=== PATIENT | female | born 1940 | race African-American/Black ===

== ENCOUNTER 2016-12-23 07:06 | Emergency (ER) | payer OTHER ==
[2016-12-23 07:08] VITALS: BP 173/88; PULSE 93; RESP 15; TEMP 98.3; O2SAT 99
[2016-12-23 07:37] VITALS: BP 175/92; PULSE 82; RESP 14; O2SAT 96
[2016-12-23] MEDS ORDERED: LISI40TA PO (07:41)
[2016-12-23] MEDS ORDERED: ASPI-437 (07:43)
[2016-12-23] MEDS ORDERED: POTA-255 (07:43)
[2016-12-23] MEDS ORDERED: FURO1TAB60 PO (07:43)
[2016-12-23] MEDS ORDERED: OXYC1TAB63 PO (07:44)
--- NOTE | 2016-12-23 07:57 | PD ---
HPI Chief Complaint: Musculoskeletal Complaint Time Seen by Provider: 07:42 Travel History International Travel<30 days: No Contact w/Intl Traveler<30days: No Traveled to known affect area: No History of Present Illness HPI C/O NECK PAIN AND DIFFICULTY MOVING HER NECK, NOTICED IT AFTER CLEANING HOUSE ALL DAY. NO FEVER/[place]/N/V/CP/ABD PAIN/ OR RASH. PATIENT RATES PAIN 7/10, SHARP , NONRAD, WORSE WITH ROM OF NECK, BETTER IF SHE KEEPS STILL OR MOVES SLOWLY PFSH Past Medical History Hx Anticoagulant Therapy: Yes (asa 81) Cardiovascular Problems: Yes (htn) Hypertension: Yes ?: Not Past Surgical History Gynecologic Surgery: Yes (FIBROID TUMOR REMOVED) Hysterectomy: Yes Social History Alcohol Use: No Tobacco Use: No Substance Use: No Allergies-Medications (Allergen,Severity, Reaction): Coded Allergies: Ampicillin (Verified Allergy, Severe, facial swelling, 12/23/16) Penicillin (Verified Allergy, Severe, facial swelling, 12/23/16) Reported Meds & Prescriptions Reported Meds & Active Scripts Active Naproxen EC (Naproxen) 375 Mg Tabdr 375 Mg PO BID Flexeril (Cyclobenzaprine HCl) 10 Mg Tab 10 Mg PO TID Reported Oxycodone-Acetaminophen 5-325 mg Tab 1 Tab PO Q6H PRN Lasix (Furosemide) 40 Mg Tab 40 Mg PO DAILY Potassium (Potassium Gluconate) 600 Mg Tablet Adult Low Dose Aspirin EC (Aspirin) 81 Mg Tablet. Lisinopril 40 Mg Tab 40 Mg PO DAILY Review of Systems Except as stated in HPI: all other systems reviewed are Neg Musculoskeletal: Positive: Limited ROM, Pain Physical Exam Narrative GENERAL: SKIN: Warm and dry. NO RASH HEAD: Atraumatic. Normocephalic. EYES: Pupils equal and round. No scleral icterus. No injection or drainage. ENT: No nasal bleeding or discharge. Mucous membranes pink and moist. NECK: Trachea midline. No JVD. NOTED BILATERAL SCM SPASMS NOTED, ABLE TO TURN THROUGH MOST OF ROM BUT PAINFUL..ALSO MUSCLE AREA TENDER TO PALPATION, NO APPARENT MIDLINE TTP ON EXAMINATIONI THUS FAR CARDIOVASCULAR: Regular rate and rhythm. NOTED 2+PITTING EDEMA WITHOUT CELLULITIC COMPONENT NOTED BILATERALLY RESPIRATORY: No accessory muscle use. Clear to auscultation. Breath sounds equal bilaterally. GASTROINTESTINAL: Abdomen soft, non-tender, nondistended. MUSCULOSKELETAL: Extremities without clubbing, cyanosis, or edema. No obvious deformities. NEUROLOGICAL: Awake and alert. No obvious cranial nerve deficits. Motor grossly within normal limits. Five out of 5 muscle strength in the arms and legs. Normal speech. PSYCHIATRIC: Appropriate mood and affect; insight and judgment normal. Data Data Last Documented VS Vital Signs Date Time Temp Pulse Resp B/P Pulse Ox O2 Delivery O2 Flow Rate FiO2 12/23/16 10:35 85 12 129/79 97 Room Air 12/23/16 07:08 98.3 Orders Electrocardiogram (12/23/16 07:48) Iv Access Insert/Monitor (12/23/16 07:48) Ketorolac Inj (Toradol Inj) (12/23/16 08:00) Lorazepam Inj (Ativan Inj) (12/23/16 08:00) Ct Cerv Spine W/O Contrast (12/23/16 ) [facility] Medical Decision Making Medical Screen Exam Complete: Yes Emergency Medical Condition: Yes Medical Record Reviewed: Yes Interpretation(s) NSR 77, NO STEMI PATTERN, NORMAL INTERVALS Differential Diagnosis ATYPICAL STEMI V DDD V RADICULOPATHY V NECK SPASM Narrative Course CT REVEALED SOME LEFT SIDED FACET HYPERTROPHY WHICH MAY BE INPINGEMENT AT C7, NO CENTRAL CORD INVOLVEMENT Diagnosis Primary Impression: ACUTE NECK SPASM Scripts Naproxen DR (Naproxen EC)375 Mg [id number] Mg PO BID #14 TAB Ref 0 Prov:Ramses Aguilar MD 12/23/16 Cyclobenzaprine (Flexeril)10 Mg Tab10 Mg PO TID #21 TAB Prov:Ramses Aguilar MD 12/23/16 Disposition: 01 DISCHARGE HOME Condition: Stable Ramses Aguilar MD Dec 23, 2016 07:57
[2016-12-23] MEDS ORDERED: LORazepam 2 MG/ML VIAL IV PUSH ONE (08:00)
[2016-12-23] MEDS ORDERED: KETOROLAC TROMETHAMINE 30 MG/ML (IVP) VIAL IV PUSH ONE (08:00)
--- NOTE | 2016-12-23 09:44 | RADRPT ---
EXAM DATE/TIME: 12/23/2016 08:42 [facility] COMPARISON: No previous studies available for comparison. INDICATIONS : Neck pain with radiculopathy down left arm after cleaning house all day. RADIATION DOSE: 30.25 CTDIvol (mGy) MEDICAL HISTORY : Hypertension. SURGICAL HISTORY : Hysterectomy. ENCOUNTER: Initial ACUITY: 1 day PAIN SCALE: 7/10 LOCATION: Left neck TECHNIQUE: Volumetric scanning of the cervical spine was performed. Multiplanar reconstructions in the sagittal, coronal and oblique axial planes were performed. Using automated exposure control and adjustment o f the mA and/or kV according to patient size, radiation dose was kept as low as reasonably achievable to obtain optimal diagnostic quality images. DICOM format image data is available electronically f or review and comparison. FINDINGS: Sagittal and coronal reconstructions show degenerative disc disease most prominent in the mid cervica l levels of C4-5 and C5-6. Small marginal spurs at C5-6 and predominately directed inferiorly and the re is a minimal read one retrolisthesis of 5 on 6. Wedge deformity of C5 is chronic. Vertebral body h eights are maintained. Spinal canal appears to be adequate throughout. Detailed axial images as follo ws: C2-C3: The bony spinal canal is normal in size. No evidence of disc bulge or herniation. The neural forami na are bilaterally patent. C3-C4: The bony spinal canal is normal in size. No evidence of disc bulge or herniation. The neural forami na are bilaterally patent. C4-C5: Mild uncovertebral ridging. There is some left facet hypertrophy. The combination encroaches on the l eft neural foramina but the spinal canal and neural foramina are adequate. C5-C6: The bony spinal canal is normal in size. No evidence of disc bulge or herniation. The neural forami na are bilaterally patent. C6-C7: Some uncovertebral ridging narrows the left neural foramina. This may be severe enough to compromise the left C7 nerve root. Spinal canal and right neural foramina are adequate. C7-T1: The bony spinal canal is normal in size. No evidence of disc bulge or herniation. The neural forami na are bilaterally patent. CONCLUSION: 1. Chronic changes with some uncovertebral ridging most prominent at C4-5 and C5-6 as detailed above. 2. Chronic wedge deformity of C5 with no acute fracture. 3. Mild narrowing of the left neural foramen at C4-5 predominantly due to to facet hypertrophy and mi ld uncovertebral ridging without obvious nerve root compromise. 4. Moderately severe narrowing of the left neural foramen at C6-7 which does appear severe enough to compromise the left C7 nerve root. Gilmer Holden MD on December 23, 2016 at 9:15 Board Certified Radiologist. This report was verified electronically.
[2016-12-23] MEDS ORDERED: CYCL1TAB29 PO (10:23)
[2016-12-23] MEDS ORDERED: NAPR-239 PO (10:23)
[2016-12-23 10:35] VITALS: BP 129/79; PULSE 85; RESP 12; O2SAT 97
--- NOTE | 2016-12-24 09:54 | EKG ---
Date Performed: 12/23/2016 Time Performed: 08:18:12 PTAGE: 76 years EKG: Sinus rhythm NORMAL ECG NO PREVIOUS TRACING DOCTOR: Ramírez Bartholomew Interpretating Date/Time 12/24/2016 09:53:20
== END 2016-12-23 12:29 | disposition home or self-care (01) ==
LOC: NEPE 07:06
DX: M54.2 Cervicalgia (principal); M62.838 Other muscle spasm; I10 Essential (primary) hypertension; Z79.82 Long term (current) use of aspirin
CPT/HCPCS: 72125; 93005; 96374; 96375; 99285; J1885; J2060

== ENCOUNTER 2017-03-23 20:13 | Inpatient (IN) | payer OTHER, MEDICARE ==
[~2017-03-23] VITALS: Ht 165.1 cm; Wt 72.4 kg
[~2017-03-23 20:13] MED LIST: ASPI-437; CYCL1TAB29 PO; FURO1TAB60 PO; LISI40TA PO; NAPR-239 PO; OXYC1TAB63 PO; POTA-255
--- NOTE | 2017-03-23 20:50 | PD ---
HPI Chief Complaint: fall Time Seen by Provider: 20:50 Travel History International Travel<30 days: No Contact w/Intl Traveler<30days: No Traveled to known affect area: No History of Present Illness HPI 76-year-old female tripped and fell around 1:30 to 2 PM today. After that she was having severe right hip pain and was unable to get off the ground. She was finally found by someone who called 911. As per EMS patient had severe right hip pain and was unable to move her leg because of that. She did not receive any pain meds on route. Patient is awake and alert and able to provide history. She says she fell and hit her head as well. However she is denying any loss of consciousness. Vital signs are stable. Patient takes 1 baby aspirin every day. As per her the fall was purely mechanical. PFSH Past Medical History Narrative Medical List of her past medical, surgical, social and family history is reviewed from the nursing note. Hx Anticoagulant Therapy: Yes (asa 81) Cardiovascular Problems: Yes (htn) Hypertension: Yes Past Surgical History Gynecologic Surgery: Yes (FIBROID TUMOR REMOVED) Hysterectomy: Yes Social History Alcohol Use: No Tobacco Use: No Substance Use: No Allergies-Medications (Allergen,Severity, Reaction): Coded Allergies: ampicillin (Unverified Allergy, Severe, facial swelling, 03/24/17) penicillin G (Unverified Allergy, Severe, facial swelling, 03/24/17) Comments List of her allergies reviewed from the nursing note. Reported Meds & Prescriptions Reported Meds & Active Scripts Active Naproxen EC (Naproxen) 375 Mg Tabdr 375 Mg PO BID Flexeril (Cyclobenzaprine HCl) 10 Mg Tab 10 Mg PO TID Reported Oxycodone-Acetaminophen 5-325 mg Tab 1 Tab PO Q6H PRN Lasix (Furosemide) 40 Mg Tab 40 Mg PO DAILY Potassium (Potassium Gluconate) 600 Mg Tablet Adult Low Dose Aspirin EC (Aspirin) 81 Mg Tablet. Lisinopril 40 Mg Tab 40 Mg PO DAILY Narrative Medication List of her home medications reviewed from the nursing note. Review of Systems Except as stated in HPI: all other systems reviewed are Neg Musculoskeletal: Positive: Limited ROM, Pain (right hip pain) Physical Exam Narrative GENERAL: Awake, alert, moderate to significant distress SKIN: Focused skin assessment warm/dry. Dry, flaky skin HEAD: Atraumatic. Normocephalic. EYES: Pupils equal and round. No scleral icterus. No injection or drainage. ENT: No nasal bleeding or discharge. Dry mucous membrane NECK: Trachea midline. No JVD. CARDIOVASCULAR: Regular rate and rhythm. No murmur appreciated. RESPIRATORY: No accessory muscle use. Clear to auscultation. Breath sounds equal bilaterally. GASTROINTESTINAL: Abdomen soft, non-tender, nondistended. Hepatic and splenic margins not palpable. MUSCULOSKELETAL: No obvious deformities. No clubbing. No cyanosis. No edema. Patient is laying in left decubitus position and the right hip is semi-flexed along with the right knee. Decreased range of motion due to pain. Distal neurovascular intact NEUROLOGICAL: Awake and alert. No obvious cranial nerve deficits. Motor grossly within normal limits. Normal speech. PSYCHIATRIC: Appropriate mood and affect; insight and judgment normal. Data Data Last Documented VS Orders Orders Electrocardiogram (03/23/17 20:54) Basic Metabolic Panel (Bmp) (03/23/17 20:54) Complete Blood Count With Diff (03/23/17 20:54) Magnesium (Mg) (03/23/17 20:54) Prothrombin Time / Inr (Pt) (03/23/17 20:54) Act Partial Throm Time (Ptt) (03/23/17 20:54) Chest, Single Ap (03/23/17 20:54) Ecg Monitoring (03/23/17 20:54) Bilateral Bp Monitoring (03/23/17 20:54) Iv Access Insert/Monitor (03/23/17 20:54) Oximetry (03/23/17 20:54) Oxygen Administration (03/23/17 20:54) Sodium Chloride 0.9% Flush (Ns Flush) (03/23/17 21:00) Sodium Chlorid 0.9% 500 Ml Inj (Ns 500 M (03/23/17 21:00) Morphine Inj (Morphine Inj) (03/23/17 21:00) Ct Brain W/O Iv Contrast(Rout) (03/23/17 ) Hip, Uni(Ap&Lat) W Ap Pelvis (03/23/17 ) Admit Order (Ed Use Only) (03/23/17 22:26) Place In Observation (03/23/17 ) Code Status (03/23/17 22:55) Vital Signs (Adult) Q4H (03/23/17 22:55) Activity Bed Rest (03/23/17 22:55) Bedside Glucose DIVYA.CSUGAR (03/23/17 22:55) Intake + Output DIVYA.QSHIFT (03/23/17 22:55) Diet Heart Healthy (03/23/17 Dinner) Sodium Chlor 0.9% 1000 Ml Inj (Ns 1000 M (03/23/17 22:55) Sodium Chloride 0.9% Flush (Ns Flush) (03/23/17 23:00) Sodium Chloride 0.9% Flush (Ns Flush) (03/23/17 23:00) Acetaminophen (Tylenol) (03/23/17 23:00) Basic Metabolic Panel (Bmp) (03/24/17 06:00) Resp Oxygen Dougie C Titrat 1-4 L (03/23/17 ) Pt Request For Service (03/23/17 22:55) Case Management Consult (03/23/17 22:55) Scd Bilateral/Knee High DIVYA.BID (03/23/17 22:55) Naloxone Inj (Narcan Inj) (03/23/17 23:00) Docusate Sodium-Senna (Verena-Colace) (03/24/17 21:00) Magnesium Hydroxide Liq (Milk Of Magnesi (03/23/17 23:00) Bisacodyl Supp (Dulcolax Supp) (03/23/17 23:00) Lactulose Liq (Lactulose Liq) (03/23/17 23:00) Consult Orthopedic (03/23/17 ) Acetamin-Hydrocod 325-7.5 Mg ([place] 7.5 (03/23/17 23:00) Morphine Inj (Morphine Inj) (03/24/17 02:00) Echo 2d Comp With Doppler (03/24/17 ) Labs Laboratory Tests Test 03/23/17 22:27 White Blood Count 9.1 TH/MM3 Red Blood Count 4.84 MIL/MM3 Hemoglobin 12.8 GM/DL Hematocrit 39.2 % Mean Corpuscular Volume 80.9 FL Mean Corpuscular Hemoglobin 26.5 PG Mean Corpuscular Hemoglobin Concent 32.8 % Red Cell Distribution Width 15.1 % Platelet Count 225 TH/MM3 Mean Platelet Volume 9.1 FL Neutrophils (%) (Auto) 85.5 % Lymphocytes (%) (Auto) 4.8 % Monocytes (%) (Auto) 9.6 % Eosinophils (%) (Auto) 0.0 % Basophils (%) (Auto) 0.1 % Neutrophils # (Auto) 7.7 TH/MM3 Lymphocytes # (Auto) 0.4 TH/MM3 Monocytes # (Auto) 0.9 TH/MM3 Eosinophils # (Auto) 0.0 TH/MM3 Basophils # (Auto) 0.0 TH/MM3 CBC Comment DIFF FINAL Differential Comment Prothrombin Time 11.3 SEC Prothromb Time International Ratio 1.0 RATIO Activated Partial Thromboplast Time 24.1 SEC Blood Urea Nitrogen 17 MG/DL Creatinine 0.85 MG/DL Random Glucose 125 MG/DL Calcium Level 9.6 MG/DL Magnesium Level 2.2 MG/DL Sodium Level 136 MEQ/L Potassium Level 3.7 MEQ/L Chloride Level 104 MEQ/L Carbon Dioxide Level 23.3 MEQ/L Anion Gap 9 MEQ/L Estimat Glomerular Filtration Rate 78 ML/MIN Total Creatine Kinase 335 U/L Creatine Kinase MB 3.1 NG/ML Creatine Kinase MB % 0.9 % MDM Medical Decision Making Medical Screen Exam Complete: Yes Emergency Medical Condition: Yes Medical Record Reviewed: Yes Interpretation(s) Twelve-lead EKG was reviewed by me. Normal sinus rhythm, normal axis, nonspecific ST-T wave changes. Heart rate of 86 bpm. Differential Diagnosis Hip fracture, intracranial bleed, rhabdomyolysis, dehydration, electrolyte abnormality Narrative Course 10:30 PM patient was given IV morphine for pain and IV fluid bolus. X-ray of the hip showed intertrochanter fracture. CT scan is negative for any head bleed. Awaiting for the blood test results. However given the hip fracture patient was admitted under medical service to the residents. Procedures EKG Prior to Arrival: No Diagnosis Primary Impression: Intertrochanteric fracture of right hip Qualified Codes: S72.141A - Displaced intertrochanteric fracture of right femur, initial encounter for closed fracture Additional Impression: Fall Qualified Codes: W19.XXXA - Unspecified fall, initial encounter Admitting Information Admitting Physician Requests: Admit Scripts Calcium Carbonate-Vitamin D (Calcium 600+D 200) 600-200 Mg-Unit Tab 1 TAB PO BID for Nutritional Supplement for 30 Days, #60 TAB 0 Refills Prov: Colton Esquivel 03/24/17 Cholecalciferol (Vitamin D3) 2,000 Unit Cap 2000 UNITS PO DAILY for Nutritional Supplement, #56 CAP 0 Refills Prov: Colton Esquivel 03/24/17 Ergocalciferol (Ergocalciferol) 50,000 Unit Cap 53284 UNITS PO Q7D for Nutritional Supplement, #56 CAP Prov: Colton Esquivel 03/24/17 Rivaroxaban (Xarelto) 10 Mg Tab 10 MG PO DAILY for Blood Clot Prevention, #14 TAB 0 Refills Prov: Colton Esquivel 03/24/17 Oxycodone-Acetaminophen (Endocet) 7.5-325 mg Tab 1 TAB PO Q4H Y for Pain Management, #60 TAB 0 Refills Prov: Colton Esquivel 03/24/17 Walker/Adult/Folding (Walker/Adult/Folding) 1 Mis Mis EA .ROUTE DIRECTED, #1 0 Refills Prov: Colton Esquivel 03/24/17 Roxanne Ponce MD Mar 23, 2017 20:50
[2017-03-23 20:55] VITALS: BP 160/74; PULSE 92; RESP 16; TEMP 98.5; O2SAT 100
[2017-03-23] MEDS ORDERED: MORPHINE SULFATE 4 MG/ML INJ IV PUSH ONE (21:00)
[2017-03-23] MEDS ORDERED: SODIUM CHLORIDE 0.9% FLUSH 10 ML FLUSH IVF PRN (21:00)
[2017-03-23] MEDS ORDERED: SODIUM CHLORID 0.9% 500 ML INJ 500 ML IV ONE (21:00)
[2017-03-23 21:21] VITALS: BP 160/74; PULSE 92; RESP 16; TEMP 98.5; O2SAT 100
--- NOTE | 2017-03-23 21:39 | RADRPT ---
EXAM DATE/TIME: 03/23/2017 21:04 [facility] COMPARISON: No previous studies available for comparison. INDICATIONS : Right hip pain, fell MEDICAL HISTORY : Hypertension. SURGICAL HISTORY : Hysterectomy. ENCOUNTER: Initial ACUITY: 1 day PAIN SCORE: 10/10 LOCATION: Right Hip FINDINGS: Examination reveals a mildly displaced and angulated intertrochanteric fracture of the right hip. The re is some mild degree of impaction. Slight medial displacement of the lesser trochanteric fracture f ragment. The femoral head remains situated over the acetabulum. The pelvis appears grossly intact. Co ntralateral left hip is intact. CONCLUSION: Intertrochanteric right hip fracture. Wyatt Barber MD on March 23, 2017 at 21:37 Board Certified Radiologist. This report was verified electronically.
--- NOTE | 2017-03-23 21:40 | RADRPT ---
EXAM DATE/TIME: 03/23/2017 21:04 [facility] COMPARISON: No previous studies available for comparison. INDICATIONS : Evaluate chest for trauma, fell MEDICAL HISTORY : Hypertension. SURGICAL HISTORY : Hysterectomy. ENCOUNTER: Initial ACUITY: 1 day PAIN SCORE: 0/10 LOCATION: chest FINDINGS: A single view of the chest demonstrates the lungs to be symmetrically aerated without evidence of mas s, infiltrate or effusion. The cardiomediastinal contours are unremarkable. Osseous structures are intact. CONCLUSION: No acute disease. Wyatt Barber MD on March 23, 2017 at 21:38 Board Certified Radiologist. This report was verified electronically.
--- NOTE | 2017-03-23 21:59 | RADRPT ---
EXAM DATE/TIME: 03/23/2017 21:37 [facility] COMPARISON: No previous studies available for comparison. INDICATIONS : Trauma. Fall. RADIATION DOSE: 29.63 CTDIvol (mGy) MEDICAL HISTORY : None SURGICAL HISTORY : None. ENCOUNTER: Initial ACUITY: 1 day PAIN SCALE: 5/10 LOCATION: cranial TECHNIQUE: Multiple contiguous axial images were obtained of the head. Using automated exposure control and adj ustment of the mA and/or kV according to patient size, radiation dose was kept as low as reasonably a chievable to obtain optimal diagnostic quality images. DICOM format image data is available electro nically for review and comparison. FINDINGS: CEREBRUM: The ventricles are normal for age. No evidence of midline shift, mass lesion, hemorrhage or acute in farction. No extra-axial fluid collections are seen. POSTERIOR FOSSA: The cerebellum and brainstem are intact. The 4th ventricle is midline. The cerebellopontine angle i s unremarkable. EXTRACRANIAL: The visualized portion of the orbits is intact. SKULL: The calvaria is intact. No evidence of skull fracture. CONCLUSION: Normal examination. Wyatt Barber MD on March 23, 2017 at 21:57 Board Certified Radiologist. This report was verified electronically.
--- NOTE | 2017-03-23 22:35 | HHI.HP ---
HPI Service Family Medicine Primary Care Physician Nikkie Carrera MD Admission Diagnosis fall, hip fracture Diagnoses: International Travel<30 Days: No Contact w/Intl Traveler<30days: No Known Affected Area: No History of Present Illness Patient is a 76 year old female with h/o HTN and chronic pain brought to the ED via EMS after calling 911 following a fall. She states she was working outside in front of her house around 14:00 today when she tripped over something and fell. She states the first thing she hit when she fell was her right hip and she also reports hitting the right side of her head after this. She states she fell on cement. She denies trauma to any other part of her body. She states she was outside for about 4 to 5 hours as she could not get up and no one was around to help her. She states she crawled back into her home, crawled up her stairs, and then called 911 for help. She denies any LOC after the fall or hitting her head. She does endorse a headache about moderate intensity. Denies any confusion now or with the fall. Denies changes in vision, double vision, N/V , CP, SOB, cough, f/c. Prior to this fall she had good functional status and is independent with all ADLs. (Killian Muir MD R2) Review of Systems Constitutional: DENIES: Fever, Chills Eyes: DENIES: Blurred vision, Diplopia Respiratory: DENIES: Cough, Sputum production, Shortness of breath Cardiovascular: DENIES: Chest pain, Palpitations Gastrointestinal: DENIES: Abdominal pain, Black stools, Bloody stools, Constipation, Diarrhea, Nausea, Vomiting Genitourinary: DENIES: Hematuria, Dysuria (Killian Muir MD R2) Past Family Social History Past Medical History HTN Lower extremity cellulitis Chronic pain Past Surgical History Hysterectomy ~40 years ago Myomectomy ? Varicose vein surgery (Killian Muir MD R2) Allergies: Coded Allergies: ampicillin (Unverified Allergy, Severe, facial swelling, 03/24/17) penicillin G (Unverified Allergy, Severe, facial swelling, 03/24/17) Family History Mother: ovarian cancer, at 67yo Father: lung cancer, at 57yo Social History Tobacco: denies Etoh: rare social occasions only Illicit drug use: denies Lives with her daughter at home (Killian Muir MD R2) Physical Exam Vital Signs Vital Signs Date Time Temp Pulse Resp B/P (MAP) Pulse Ox O2 Delivery O2 Flow Rate FiO2 03/23/17 22:17 Room Air 03/23/17 21:21 100 03/23/17 21:21 98.5 92 16 160/74 (102) 100 Nasal Cannula 03/23/17 21:21 100 03/23/17 20:55 98.5 92 16 160/74 (102) 100 Physical Exam GENERAL: NAD, lying comfortably in bed NEURO: Alert. Normal speech. 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 Strength 5/5 upper extremities and left leg. 3/5 strength right lower extremity. SKIN: Warm and dry. Darkened and old mottled skin on bilateral lower extremities. No erythema. No open or actively draining or bleeding lesions. HEAD: Normocephalic. Atraumatic. EYES: PERRL. EOMI. No scleral icterus. No injection or drainage. ENT: No nasal drainage. Moist mucous membranes. No oral ulcers or lesions. NECK: Supple, trachea midline. No JVD or lymphadenopathy. CARDIOVASCULAR: Regular rate and rhythm, early systolic murmur best auscultated LUSB. Peripheral pulses 2+. Capillary refill < 2 seconds. RESPIRATORY: Breath sounds clear to auscultation and equal bilaterally, without wheezes, rales, or rhonchi. No accessory muscle use. GASTROINTESTINAL: Abdomen soft, nontender, nondistended, normal BS. No organomegaly or masses. No rebound tenderness. No guarding. MUSCULOSKELETAL: No lower extremity edema. Normal range of motion. No calf tenderness. (Killian Muir MD R2) Caprini VTE Risk Assessment Caprini VTE Risk Assessment: Mod/High Risk (score >= 2) Caprini Risk Assessment Model Point Value = 1 Point Value = 2 Point Value = 3 Point Value = 5 Age 41-60 Minor surgery BMI > 25 kg/m2 Swollen legs Varicose veins or History of unexplained or recurrent spontaneous Oral contraceptives or hormone replacement Sepsis (< 1 month) Serious lung disease, including pneumonia (< 1 month) Abnormal pulmonary function Acute myocardial infarction Congestive heart failure (< 1 month) History of inflammatory bowel disease Medical patient at bed rest Age 61-74 Arthroscopic surgery Major open surgery (> 45 min) Laparoscopic surgery (> 45 min) Malignancy Confined to bed (> 72 hours) Immobilizing plaster cast Central venous access Age >= 75 History of VTE Family history of VTE Factor V Leiden Prothrombin [id number] Lupus anticoagulant Anticardiolipin antibodies Elevated serum homocysteine Heparin-induced thrombocytopenia Other congenital or acquired thrombophilia Stroke (< 1 month) Elective arthroplasty Hip, pelvis, or leg fracture Acute spinal cord injury (< 1 month) Prophylaxis Regimen Total Risk Factor Score Risk Level Prophylaxis Regimen 0-1 Low Early ambulation 2 Moderate Order ONE of the following: *Sequential Compression Device (SCD) *Heparin 5000 units SQ BID 3-4 Higher Order ONE of the following medications: *Heparin 5000 units SQ TID *Enoxaparin/Lovenox 40 mg SQ daily (WT < 150 kg, CrCl > 30 mL/min) *Enoxaparin/Lovenox 30 mg SQ daily (WT < 150 kg, CrCl > 10-29 mL/min) *Enoxaparin/Lovenox 30 mg SQ BID (WT < 150 kg, CrCl > 30 mL/min) AND/OR *Sequential Compression Device (SCD) 5 or more Highest Order ONE of the following medications: *Heparin 5000 units SQ TID (Preferred with Epidurals) *Enoxaparin/Lovenox 40 mg SQ daily (WT < 150 kg, CrCl > 30 mL/min) *Enoxaparin/Lovenox 30 mg SQ daily (WT < 150 kg, CrCl > 10-29 mL/min) *Enoxaparin/Lovenox 30 mg SQ BID (WT < 150 kg, CrCl > 30 mL/min) AND *Sequential Compression Device (SCD) (Killian Muir MD R2) Assessment and Plan Assessment and Plan 76 year old female being admitted for a right intertrochanteric hip fracture. Code Status Full code Discussed Condition With Dr. Willis (Killian Muir MD R2) Attending Attestation THIS CASE WAS DISCUSSED WITH THE RESIDENT PHYSICIANS. I HAVE REVIEWED THE RECORD AND AGREE WITH THE ABOVE NOTE AND PLAN OF CARE WAS DISCUSSED. I HAVE AUTHORIZED THE ORDER FOR ADMISSION TO AN IN-PATIENT STATUS. (Desire Telles MD) Problem List: (1) Intertrochanteric fracture of right hip ICD Codes: S72.141A - Displaced intertrochanteric fracture of right femur, initial encounter for closed fracture Status: Acute Plan: - Hip/pelvis x-ray demonstrating intertrochanteric right hip fracture - Orthopedic surgery consulted - NPO after midnight - [place] 7.5/325 po q4h prn pain 6-10 - Morphine 4 mg IV q4h prn breakthrough - NS at 110 cc/hr (2) Elevated CK ICD Codes: R74.8 - Abnormal levels of other serum enzymes Status: Acute Plan: - Likely contributed by trauma, exertion, heat as patient was outside for about 5 hours - NS at 110 cc/hr - Cr 0.85 WNL (3) Heart murmur ICD Codes: R01.1 - Cardiac murmur, unspecified Status: Acute Plan: - Patient reported not knowing of a heart murmur in the past - Will obtain a 2D echo (4) Hypertension ICD Codes: I10 - Essential (primary) hypertension Status: Chronic Plan: Continue home lisinopril Vitals q4h (5) Nutrition, metabolism, and development symptoms ICD Codes: R63.8 - Other symptoms and signs concerning food and fluid intake Status: Acute Plan: Fluids: NS at 110 cc/hr Electrolytes: WNL, continue to monitor Nutrition: NPO after MN DVT ppx: b/l SCDs (Killian Muir MD R2) Physician Certification 2 Midnight Certification Type: Admission for Inpatient Services Order for Inpatient Services The services are ordered in accordance with Medicare regulations or non- Medicare payer requirements, as applicable. In the case of services not specified as inpatient-only, they are appropriately provided as inpatient services in accordance with the 2-midnight benchmark. Estimated LOS (days): 2 days is the estimated time the patient will need to remain in the hospital, assuming treatment plan goals are met and no additional complications. Post-Hospital Plan: Inpatient Rehab (Killian Muir MD R2) 2 Midnight Certification Type: Admission for Inpatient Services Post-Hospital Plan: Home (Desire Telles MD) Problem Qualifiers (1) Intertrochanteric fracture of right hip: Qualified Codes: S72.141A - Displaced intertrochanteric fracture of right femur , initial encounter for closed fracture Killian Muir MD R2 Mar 23, 2017 22:35 Desire Telles MD Mar 24, 2017 13:10
[2017-03-23 22:43] LABS: AUTOMATED NEUTROPHIL # 7.7 TH/MM3 (1.8-7.7); BASOPHIL % 0.1 % (0.0-2.0); HEMATOCRIT 39.2 % (35.0-46.0); HEMO FLAGS DIFF FINAL; LYMPH % 4.8 % (9.0-44.0); LYMPHOCYTE # 0.4 TH/MM3 (1.0-4.8); MEAN CELL VOLUME 80.9 FL (80.0-100.0); MEAN CORPUSCULAR HEMOGLOBIN 26.5 PG (27.0-34.0); MEAN CORPUSCULAR HGB CONC 32.8 % (32.0-36.0); MONO % 9.6 % (0.0-8.0); NEUT % 85.5 % (16.0-70.0); PLATELET COUNT 225 TH/MM3 (150-450); RED BLOOD COUNT 4.84 MIL/MM3 (4.00-5.30); RED CELL DISTRIBUTION WIDTH 15.1 % (11.6-17.2); WHITE BLOOD COUNT 9.1 TH/MM3 (4.0-11.0)
[2017-03-23 23:00] LABS: BICARBONATE 23.3 MEQ/L (21.0-32.0); MAGNESIUM 2.2 MG/DL (1.5-2.5); POTASSIUM 3.7 MEQ/L (3.5-5.1)
[2017-03-23] MEDS ORDERED: BISACODYL 10 MG SUPP RECTAL PRN (23:00)
[2017-03-23] MEDS ORDERED: NALOXONE HCL 0.4 MG/ML AMP IV PUSH PRN (23:00)
[2017-03-23] MEDS ORDERED: SODIUM CHLORIDE 0.9% FLUSH 10 ML FLUSH IV FLUSH PRN (23:00)
[2017-03-23] MEDS ORDERED: ACETAMINOPHEN 325 MG TAB PO PRN (23:00)
[2017-03-23 23:02] LABS: APTT (PATIENT) 24.1 SEC (24.3-30.1); PROTHROMBIN TIME - PATIENT 11.3 SEC (9.8-11.6)
[2017-03-23] MEDS: SODIUM CHLORIDE 0.9% FLUSH 10 ML FLUSH IV FLUSH SCH (23:11)
[2017-03-23] MEDS: SODIUM CHLOR 0.9% 1000 ML INJ 1,000 ML IV SCH (23:12)
[2017-03-23 23:38] VITALS: O2SAT 97
[2017-03-23 23:48] VITALS: BP 153/84
[2017-03-24] VITALS (7 sets, daily range): BP systolic 123–149; BP diastolic 64–78; PULSE 78–104; RESP 16–18; TEMP 95.9–98; O2SAT 95–98
[2017-03-24 00:04] LABS: CKMB 3.1 NG/ML (0.5-3.6)
[2017-03-24] MEDS ORDERED: METOPROLOL TARTRATE 25 MG TAB PO PRN (01:00)
[2017-03-24] MEDS ORDERED: POVIDONE IODINE 5% (ANTISEPSIS KIT) 4 APPLICATIONS EACH NARE PRN (01:00)
[2017-03-24] MEDS ORDERED: CHLORHEXIDINE GLUCONATE 2 % 1 PACK (2 CLOTHS) TOPICAL PRN (01:00)
[2017-03-24] MEDS ORDERED: SODIUM CHLORID 0.9% 500 ML IV PRN (01:00)
[2017-03-24] MEDS ORDERED: LACTATED RINGER'S 1000 ML IV PRN (01:00)
[2017-03-24] MEDS ORDERED: INSULIN HUMAN REGULAR 1,000 UNITS/10 ML VIAL SQ PRN (01:00)
[2017-03-24] MEDS ORDERED: MORPHINE SULFATE 4 MG/ML INJ IV PUSH PRN ×2 (02:00→08:30)
--- NOTE | 2017-03-24 07:01 | PD.ORT.PN ---
Subjective Subjective Remarks s/p fall at home. right hip pain. no other complaints. Objective Vitals Vital Signs Date Time Temp Pulse Resp B/P (MAP) Pulse Ox O2 Delivery O2 Flow Rate FiO2 03/24/17 04:00 97.8 93 16 149/72 (97) 03/24/17 00:00 97.2 98 16 133/76 (95) 96 03/23/17 23:48 153/84 (107) 99 03/23/17 23:38 97 03/23/17 22:17 Room Air 03/23/17 21:21 100 03/23/17 21:21 98.5 92 16 160/74 (102) 100 Nasal Cannula 03/23/17 21:21 100 03/23/17 20:55 98.5 92 16 160/74 (102) 100 I/O 03/23/17 03/23/17 03/23/17 03/24/17 03/24/17 03/24/17 07:00 15:00 23:00 07:00 15:00 23:00 Intake Total 480 ml Balance 480 ml Intake Oral 480 ml # Voids 3 # Bowel Movements 0 Result Diagram: 03/23/17222603/23/172226 Other Results Laboratory Tests Test 03/23/17 22:27 Prothromb Time International Ratio 1.0 RATIO Prothrombin Time 11.3 SEC (9.8-11.6) Imaging Last 24 hours Impressions Chest X-Ray 03/23/172053 Signed Impressions: Service Date/Time: Thursday, March 23, 2017 21:04 - CONCLUSION: No acute disease. Wyatt Barber MD Objective Remarks RLE: pain with motion of hip. no pain in knee or ankle. NVI Assessment & Plan Assessment and Plan 1) Right Intertroch Hip Fx -npo -consents -surgery today Colton Esquivel Mar 24, 2017 07:01
[2017-03-24] MEDS ORDERED: CALCTAB19 PO (07:02)
[2017-03-24] MEDS ORDERED: WALKER/ADULT/FO1 MIS (07:02)
[2017-03-24] MEDS ORDERED: VITA2000 PO (07:02)
[2017-03-24] MEDS ORDERED: ERGO1CAP30 PO (07:02)
[2017-03-24] MEDS ORDERED: ENDO7.5T10 PO (07:02)
[2017-03-24] MEDS ORDERED: XARE10TA PO (07:02)
[2017-03-24] MEDS ORDERED: GENTAMICIN SULFATE 80 MG/2 ML VIAL ONE (07:06)
[2017-03-24] MEDS ORDERED: VANCOMYCIN HCL 1000 MG VIAL ONE (07:06)
[2017-03-24] MEDS ORDERED: SODIUM CHLOR 0.9% 250 ML INJ 250 ML ONE (07:06)
[2017-03-24] MEDS ORDERED: ceFAZolin INJ 1,000 MG VIAL ONE (07:34)
[2017-03-24] MEDS ORDERED: BUPIVACAINE/EPINEPHRINE 0.25% 50 ML VIAL ONE (07:46)
[2017-03-24] MEDS: SODIUM CHLORIDE 0.9% FLUSH 10 ML FLUSH IV FLUSH SCH ×2 (07:53→20:29)
[2017-03-24] MEDS: LISINOPRIL 20 MG TAB PO SCH (07:53)
[2017-03-24] MEDS: SODIUM CHLOR 0.9% 1000 ML INJ 1,000 ML IV SCH ×3 (08:01→20:29)
--- NOTE | 2017-03-24 08:24 | PD.OP ---
cc: Brian Harman MD Operative Report Date of Surgery: Mar 24, 2017 Preoperative Diagnosis: Right hip intertrochanteric fracture Postoperative Diagnosis: Procedure: Reduction and intramedullary nail fixation right hip Anesthesia: Gen. Surgeon: Brian Harman Welfare Interviewer(s): THIERNO Yoo PA-C The surgical procedure was assisted by my physician assistant secretary. My P.A. presence was necessary throughout this case for the manipulation and positioning of the surgical extremity. My P.A. was assisting me throughout the duration of this procedure. The skill set of a physician assistant secretary was medically necessary to complete this procedure. During the surgical case the vibration technician was working at the back table and the physician assistant secretary was directly assisting me. Operation and Findings: Implants used: [11]mm 125 Synthes TFNA short troch nail Plan of activity: Weight-bear as tolerated Patient was seen and evaluated preoperatively. The patient has significant hip pain from intertrochanteric hip fracture. The risk and benefits of surgery were discussed in depth with the patient to include bleeding infection nonunion malunion and need for hip replacement painful hardware as well as medical competitions including but not stroke heart attack and . Informed consent was obtained. Operative site was marked. Patient was brought to the operating room and placed on fracture table. IV sedation was administered by anesthesiologist. Timeout procedure was performed. Hip and leg were prepped with alcohol followed by DuraPrep and draped in the usual sterile fashion. IV antibiotics were given prior to incision. Procedure began with reduction of fracture. Traction was applied. The leg was manipulated to achieve reduction. Excellent reduction was achieved. Fluoroscopy was used to confirm reduction. A three inch incision was made proximal to the trochanter. Subcutaneous tissue was dissected bluntly. Guidepin was placed at the tip of the trochanter and advanced into the femoral canal. Fluoroscopy confirmed appropriate guidepin placement. A opening reamer was placed over the guidepin. The Synthes TFNA nail was attached to the insertion handle. Nail was now placed through the tip of the trochanter into the femoral canal. Fluoroscopy confirmed appropriate nail placement. A second incision was made over the lateral thigh. Cannulas were placed through the insertion handle down to the femur. Guidepin was now placed through the femoral nail into the center of the femoral head. Fluoroscopy confirmed appropriate guidepin placement. Screw length was measured. Cannulated drill was placed over the guidepin. Appropriate length lag screw was now placed. Traction was released and compression was applied. The set screw was now tightened in dynamic mode. Using the insertion handle as a guide a distal interlocking screw was drilled and placed. Final fluoroscopy revealed well aligned fracture with well-placed hardware. Incision was closed with 3-0 Vicryl and venkat. Sterile dressings were applied. Patient was awakened and transferred to recovery room. Brian Harman MD Mar 24, 2017 08:24
[2017-03-24] MEDS ORDERED: diphenhydrAMINE HCL 25 MG CAP PO PRN (08:30)
[2017-03-24] MEDS ORDERED: SODIUM CHLORIDE 0.9% FLUSH 5 ML FLUSH IVF PRN (08:30)
[2017-03-24] MEDS ORDERED: ERGOCALCIFEROL (VIT D2) 50,000 UNIT CAP PO ONE (08:30)
[2017-03-24] MEDS ORDERED: ONDANSETRON HCL 4 MG/2 ML VIAL IVP PRN (08:30)
[2017-03-24 08:34] LABS: BICARBONATE 27.4 MEQ/L (21.0-32.0); POTASSIUM 3.5 MEQ/L (3.5-5.1)
[2017-03-24] MEDS ORDERED: DO NOT ADM ANY ANTICOAGULANT DRUGS PRN (08:42)
[2017-03-24] MEDS: CALCIUM/VITAMIN D 250 MG/125 U TAB PO SCH ×3 (09:00→17:26)
[2017-03-24] MEDS ORDERED: SODIUM CHLORIDE 0.9% FLUSH 5 ML FLUSH IVF SCH (09:00)
[2017-03-24] MEDS: CHOLECALCIFEROL (VIT D3) 5000 UNIT CAP PO SCH (09:00)
--- NOTE | 2017-03-24 09:38 | MB ---
cc: ETSEBAN JONES DATE OF CONSULTATION 03/24/2017 DATE OF ADMISSION 03/23/2017 REASON FOR CONSULTATION Right hip intertrochanteric fracture. CONSULTING PHYSICIAN Dr. Lindquist HISTORY Cecelia is a 76-year-old female who has a history of hypertension and chronic pain. She was working outside when she tripped and fell. She lost her balance. She denies any dizziness, syncope or loss of consciousness. She had immediate right hip pain. She was unable to stand or ambulate. She crawled back to her home and call . She presented to the emergency room via EMS. X-rays revealed a right hip intertrochanteric fracture. Currently her only complaint is her right hip. Pain is worse with movement and is improved with rest. PAST MEDICAL HISTORY ILLNESSES Hypertension and chronic pain. SURGERIES 1. Hysterectomy 2. Myomectomy 3. Varicose vein surgery ALLERGIES AMPICILLIN AND PENICILLIN FAMILY HISTORY Positive for ovarian cancer in her mother and lung cancer in her father. SOCIAL HISTORY The patient denies tobacco use. She drinks alcohol rarely. She denies drug use. She lives with her daughter. REVIEW OF SYSTEMS The patient denies headache, visual changes, neck pain, chest pain, shortness of breath, abdominal pain, nausea, vomiting, fevers or chills, recent weight loss or numbness and tingling of extremities. She complains of right hip pain. PHYSICAL EXAMINATION The patient is a pleasant 76-year-old female who is awake and alert. She appears well-developed, well-nourished. She is alert and oriented. VITAL SIGNS: Temperature 97.8, pulse 93, respirations 16, blood pressure 149/72, O2 sat 96% on room air. HEAD: The patient is normocephalic. EYES: Pupils are equal. NECK: Soft and nontender. Trachea is midline. ABDOMEN: Soft, nontender, nondistended. EXTREMITIES: Examination of bilateral upper extremities reveals no pain with shoulder, elbow or wrist motion. She has intact sensation in all fingers. She has good cap refill fingers. Skin is intact to both hands. Extension Course Coordinator strength is +5 bilaterally. Examination of the left leg reveals no pain with hip, knee or ankle motion. Skin is intact. Dorsalis pedis pulses palpable. Sensation is intact. Examination of right leg reveals pain with any hip motion. She is diffusely tender to palpation around her right hip. She has no tenderness her knee tibia or ankle. Calf and thigh compartments are soft. Dorsalis pedis pulse is palpable. Sensation is intact in the right foot. Skin is intact in both feet. X-RAYS X-rays of the right hip were reviewed. X-rays reveal a displaced right hip intertrochanteric fracture. IMPRESSION 1. Hypertension 2. Right hip intertrochanteric fracture. 3. Possible postmenopausal osteoporosis. PLAN Treatment options were discussed with the patient. At this point, I would recommend reduction and internal fixation of the right femur. The risks of surgery include bleeding, infection, injury to arteries, nerves and blood vessels, nonunion, malunion, painful hardware, avascular process, need for hip replacement as well as medical complications including blood clot, stroke, heart attack and . All questions were answered. I will plan on surgery today. A mid-level provider in my office, nurse practitioner or PA, may see this patient on a follow-up basis and continue to implement the objective of this plan including: Starting or adjusting medications, injections of muscle, tendon, bursa or joints, cast application, orthotic or brace application, physical therapy, further radiographic studies including x-ray, MRI, CT, ultrasounds or bone scan, vascular studies, neurologic studies, or other specialist consultations, and proceeding with surgical management as appropriate. MD LAZARO Fox/WILLY /7:28 AM /9:27 AM
--- NOTE | 2017-03-24 11:58 | ECHRPT ---
Indication: murmur CONCLUSIONS The left ventricular systolic function is low normal with an estimated ejection fraction in the rang e of 50- 55%. Normal left ventricular size. Oupdl-gn-imud mitral valve regurgitation. aneurysmal atrial septum Trace aortic valve regurgitation. No aortic valve stenosis. BP: / HR: Rhythm: MEASUREMENTS (Male / Female) Normal Values Technical Quality:Good 2D ECHO LV Diastolic Diameter PLAX 3.7 cm 4.2 - 5.9 / 3.9 - 5.3 cm LV Systolic Diameter PLAX 2.8 cm IVS Diastolic Thickness 1.3 cm 0.6 - 1.0 / 0.6 - 0.9 cm LVPW Diastolic Thickness 1.0 cm 0.6 - 1.0 / 0.6 - 0.9 cm LV Relative Wall Thickness 0.6 RV Internal Dim ED PLAX 2.5 cm LVOT Diameter 2.2 cm M-MODE Aortic Root Diameter MM 2.9 cm LA Systolic Diameter MM 2.7 cm LA Ao Ratio MM 0.9 DOPPLER AV Peak Velocity 179.0 cm/s AV Peak Gradient 12.8 mmHg AV Mean Gradient 6.0 mmHg AV Velocity Time Integral 37.4 cm LVOT Peak Velocity 132.0 cm/s LVOT Peak Gradient 7.0 mmHg LVOT Velocity Time Integral 26.9 cm AV Area Cont Eq vti 2.7 cm AV Area Cont Eq pk 2.8 cm Mitral E Point Velocity 66.1 cm/s Mitral A Point Velocity 92.3 cm/s Mitral E to A Ratio 0.7 LV E' Lateral Velocity 36.5 cm/s Mitral E to LV E' Lateral Ratio 1.8 LV E' Septal Velocity 27.6 cm/s Mitral E to LV E' Septal Ratio 2.4 TR Peak Velocity 269.7 cm/s TR Peak Gradient 29.1 mmHg Right Atrial Pressure 10.0 mmHg Pulmonary Artery Systolic Pressu 39.1 mmHg Right Ventricular Systolic Press 39.1 mmHg FINDINGS LEFT VENTRICLE The left ventricular systolic function is low normal with an estimated ejection fraction in the rang e of 50- 55%. Normal left ventricular size. RIGHT VENTRICLE Normal right ventricular size and systolic function. LEFT ATRIUM The left atrial size is normal. RIGHT ATRIUM The right atrial size is normal. ATRIAL SEPTUM Normal atrial septal thickness without atrial level shunting by limited color doppler interrogation. AORTA The aortic root and proximal ascending aorta are normal in size on limited imaging. MITRAL VALVE Xtyda-ko-hgcq mitral valve regurgitation. Structurally normal mitral valve. AORTIC VALVE Trileaflet aortic valve. Trace aortic valve regurgitation. No aortic valve stenosis. TRICUSPID VALVE Structurally normal tricuspid valve. No tricuspid valve stenosis or regurgitation. PULMONARY VALVE No pulmonary valve regurgitation or stenosis. VESSELS The inferior vena cava is normal in size. PERICARDIUM No pericardial effusion. Marquise Katz MD, FACC, [facility] (Electronically Signed) Final Date:24 March 2017 11:58
[2017-03-24 12:41] LABS: CKMB 3.6 NG/ML (0.5-3.6)
--- NOTE | 2017-03-24 13:59 | HHI.PR ---
Subjective Remarks Doing well no fever or chills no chest pain or short of breath Objective Vitals Vital Signs Date Time Temp Pulse Resp B/P (MAP) Pulse Ox O2 Delivery O2 Flow Rate FiO2 03/24/17 09:12 74 16 126/69 (88) 100 Nasal Cannula 2 03/24/17 09:00 97.8 70 17 125/66 (85) 100 Nasal Cannula 2 03/24/17 08:45 76 15 122/70 (87) 100 Nasal Cannula 2 03/24/17 08:43 98.5 93 22 134/63 (86) 100 Nasal Cannula 2 03/24/17 07:15 97.2 90 18 143/71 (95) 96 03/24/17 04:00 97.8 93 16 149/72 (97) 03/24/17 00:00 97.2 98 16 133/76 (95) 96 03/23/17 23:48 153/84 (107) 99 03/23/17 23:38 97 03/23/17 22:17 Room Air 03/23/17 21:21 100 03/23/17 21:21 98.5 92 16 160/74 (102) 100 Nasal Cannula 03/23/17 21:21 100 03/23/17 20:55 98.5 92 16 160/74 (102) 100 I/O 03/23/17 03/23/17 03/23/17 03/24/17 03/24/17 03/24/17 07:00 15:00 23:00 07:00 15:00 23:00 Intake Total 480 ml 500 ml Output Total 50 ml Balance 480 ml 450 ml Intake Oral 480 ml IV Total 0 ml Other 500 ml Output Estimated Blood Loss 50 ml # Voids 3 # Bowel Movements 0 Result Diagram: 03/23/17 2227 03/24/17 0550 Objective Remarks GENERAL: This is a well-nourished, well-developed patient, in no apparent distress. SKIN: No rashes, warm and dry HEAD: Atraumatic. Normocephalic. EYES: Pupils equal round and reactive. Extraocular motions intact. No scleral icterus. ENT: Nose without bleeding, or drainage, Airway patent. NECK: Trachea midline. Supple CARDIOVASCULAR: Regular rate and rhythm without murmurs, gallops, or rubs. RESPIRATORY: Fair air entry bilaterally. No wheezes, rales, or rhonchi. GASTROINTESTINAL: Abdomen soft, non-tender, nondistended. Positive bowel sounds MUSCULOSKELETAL: Extremities without clubbing, cyanosis, or edema. Pedal pulses appreciated NEUROLOGICAL: Awake and alert. Moves all extremity. Normal speech.no focal neurological deficit A/P Assessment and Plan Intertrochanteric fracture of the right hip Rhabdomyolysis elevated CK Hypertension Metabolic malnutrition DVT prophylaxis Plan: Status post ORIF Pain management with [place] Appreciate ortho helping Continue iv fluid and monitor CK with BMP Continue lisinopril and monitor blood pressure Monitor electrolyte 2-D echo reviewed trace to mild aortic regurg with EF 50-55% Lovenox for DVT prophylaxis Vera Balderas MD Mar 24, 2017 13:58
--- NOTE | 2017-03-24 15:20 | EKG ---
Date Performed: 03/23/2017 Time Performed: 21:58:37 PTAGE: 76 years EKG: Sinus rhythm WITH SINUS ARRHYTHMIA NORMAL ECG Compared to prior tracing no significant change PREVIOUS TRACING : 12/23/2016 08.18 DOCTOR: Marquise Katz Interpretating Date/Time 03/24/2017 15:20:00
--- NOTE | 2017-03-24 17:21 | RADRPT ---
EXAM DATE/TIME: 03/24/2017 08:19 [place] COMPARISON: No previous studies available for comparison. INDICATIONS : IM troch right hip. MEDICAL HISTORY : Hypertension. SURGICAL HISTORY : Hysterectomy. ENCOUNTER: Subsequent ACUITY: 2 days PAIN SCORE: Non-responsive. LOCATION: Right Hip. FINDINGS: 4 images are recorded digitally in the operating room using C-arm during placement of a proximal femo ral intramedullary junior with distal intercalated screw and intratrochanteric screw blade extending int o the femoral head. CONCLUSION: Intraoperative images. Leland Carrera MD on March 24, 2017 at 17:19 Board Certified Radiologist. This report was verified electronically.
[2017-03-24] MEDS: DOCUSATE SODIUM 50 MG/SENNA 8.6 MG TAB PO SCH (20:29)
[2017-03-24] MEDS: MAGNESIUM HYDROXIDE SUSP 30 ML CUP PO PRN (20:29)
[2017-03-24] MEDS: ACETAMINOPHEN/HYDROcodone 325 MG/7.5 MG TAB PO PRN (23:19)
[2017-03-25] VITALS: BP 129/72; PULSE 102; RESP 18; TEMP 96.1; O2SAT 96
[2017-03-25 04:00] VITALS: BP 110/65; PULSE 91; RESP 16; TEMP 96.5; O2SAT 95
--- NOTE | 2017-03-25 06:48 | PD.ORT.PN ---
Subjective Subjective Remarks Pain controlled no new complaints Objective Vitals Vital Signs Date Time Temp Pulse Resp B/P (MAP) Pulse Ox O2 Delivery O2 Flow Rate FiO2 03/25/17 04:00 96.5 91 16 110/65 (80) 95 03/25/17 00:00 96.1 102 18 129/72 (91) 96 03/24/17 18:55 98.0 104 17 123/64 (83) 97 03/24/17 17:22 95 21 03/24/17 16:48 97.1 83 16 134/70 (91) 95 03/24/17 12:00 95.9 78 18 124/78 (93) 98 03/24/17 09:12 74 16 126/69 (88) 100 Nasal Cannula 2 03/24/17 09:00 97.8 70 17 125/66 (85) 100 Nasal Cannula 2 03/24/17 08:45 76 15 122/70 (87) 100 Nasal Cannula 2 03/24/17 08:43 98.5 93 22 134/63 (86) 100 Nasal Cannula 2 03/24/17 07:15 97.2 90 18 143/71 (95) 96 I/O 03/24/17 03/24/17 03/24/17 03/25/17 03/25/17 03/25/17 07:00 15:00 23:00 07:00 15:00 23:00 Intake Total 480 ml 740 ml 580 ml 580 ml Output Total 50 ml Balance 480 ml 690 ml 580 ml 580 ml Intake Oral 480 ml 240 ml 480 ml 480 ml IV Total 0 ml 100 ml 100 ml Other 500 ml Output Estimated Blood Loss 50 ml # Voids 3 1 5 3 # Bowel Movements 0 0 0 0 Result Diagram: 03/23/17222603/24/17 0550 Imaging Last 24 hours Impressions Chest X-Ray 03/23/172053 Signed Impressions: Service Date/Time: Thursday, March 23, 2017 21:04 - CONCLUSION: No acute disease. Wyatt Barber MD Objective Remarks Right lower extremity: Clean dry dressings intact. Mild swelling. Distally intact sensation good capillary refills. Active dorsal flexion plantar flexion of foot Assessment & Plan Assessment and Plan Right intertrochanteric femur fracture IM nail POD 1 Physical therapy weightbearing as tolerated Daily dressing changes POD 2 Lovenox Incentive spirometry Case management for rehabilitation placement Follow-up Dr. Harman or PA in 2 weeks Venkat Barrett Jr. PA Mar 25, 2017 06:48
[2017-03-25 07:22] LABS: HEMATOCRIT 26.8 % (35.0-46.0); REVIEW FLAG FINAL
[2017-03-25 08:00] VITALS: BP 119/69; PULSE 93; RESP 16; TEMP 98.1; O2SAT 96
[2017-03-25] MEDS: LACTULOSE SYRUP 20 GM/30 ML CUP PO PRN (08:37)
[2017-03-25] MEDS: DOCUSATE SODIUM 50 MG/SENNA 8.6 MG TAB PO SCH ×2 (08:37→20:32)
[2017-03-25] MEDS: LISINOPRIL 20 MG TAB PO SCH (08:38)
[2017-03-25] MEDS: CALCIUM/VITAMIN D 250 MG/125 U TAB PO SCH ×3 (08:38→16:08)
[2017-03-25] MEDS: CHOLECALCIFEROL (VIT D3) 5000 UNIT CAP PO SCH (08:38)
[2017-03-25] MEDS: ENOXAPARIN SODIUM 30 MG/0.3 ML SYRINGE SQ SCH (08:38)
[2017-03-25] MEDS: SODIUM CHLORIDE 0.9% FLUSH 10 ML FLUSH IV FLUSH SCH ×2 (08:41→20:33)
[2017-03-25] MEDS: SODIUM CHLOR 0.9% 1000 ML INJ 1,000 ML IV SCH ×3 (08:47→20:31)
[2017-03-25] MEDS: ACETAMINOPHEN/HYDROcodone 325 MG/7.5 MG TAB PO PRN ×2 (11:29→16:08)
[2017-03-25 11:30] VITALS: BP 121/69; PULSE 90; RESP 18; TEMP 98; O2SAT 95
[2017-03-25 16:31] VITALS: BP 83/53; PULSE 101; RESP 16; TEMP 96.6; O2SAT 97
[2017-03-25 19:24] VITALS: BP 133/62; PULSE 83; RESP 16; TEMP 97.1; O2SAT 94
--- NOTE | 2017-03-25 19:51 | HHI.PR ---
Subjective Remarks Resting comfortably in bed No event overnight Denied chest and or short of breath No fever or chills Objective Vitals Vital Signs Date Time Temp Pulse Resp B/P (MAP) Pulse Ox O2 Delivery O2 Flow Rate FiO2 03/25/17 19:24 97.1 83 16 133/62 (85) 94 03/25/17 16:31 96.6 101 16 83/53 (63) 97 03/25/17 11:30 98.0 90 18 121/69 (86) 95 03/25/17 08:00 98.1 93 16 119/69 (86) 96 03/25/17 04:00 96.5 91 16 110/65 (80) 95 03/25/17 00:00 96.1 102 18 129/72 (91) 96 I/O 03/24/17 03/24/17 03/24/17 03/25/17 03/25/17 03/25/17 07:00 15:00 23:00 07:00 15:00 23:00 Intake Total 480 ml 740 ml 580 ml 580 ml 620 ml Output Total 50 ml Balance 480 ml 690 ml 580 ml 580 ml 620 ml Intake Oral 480 ml 240 ml 480 ml 480 ml 520 ml IV Total 0 ml 100 ml 100 ml 100 ml Other 500 ml Output Estimated Blood Loss 50 ml # Voids 3 1 5 3 2 # Bowel Movements 0 0 0 0 0 Result Diagram: 03/25/17 0538 03/24/17 0550 Objective Remarks GENERAL: This is a well-nourished, well-developed patient, in no apparent distress. SKIN: No rashes, warm and dry HEAD: Atraumatic. Normocephalic. EYES: Pupils equal round and reactive. Extraocular motions intact. No scleral icterus. ENT: Nose without bleeding, or drainage, Airway patent. NECK: Trachea midline. Supple CARDIOVASCULAR: Regular rate and rhythm without murmurs, gallops, or rubs. RESPIRATORY: Fair air entry bilaterally. No wheezes, rales, or rhonchi. GASTROINTESTINAL: Abdomen soft, non-tender, nondistended. Positive bowel sounds MUSCULOSKELETAL: Extremities without clubbing, cyanosis, or edema. Pedal pulses appreciated NEUROLOGICAL: Awake and alert. Moves all extremity. Normal speech.no focal neurological deficit A/P Assessment and Plan Intertrochanteric fracture of the right hip Rhabdomyolysis elevated CK Hypertension Metabolic malnutrition DVT prophylaxis Plan: Status post ORIF Pain management with [place] Appreciate ortho helping Continue iv fluid and monitor CK with BMP Continue lisinopril and monitor blood pressure Monitor electrolyte 2-D echo reviewed trace to mild aortic regurg with EF 50-55% Lovenox for DVT prophylaxis 03/25: Continue PT OT, continue monitoring blood pressure CK Vera Balderas MD Mar 25, 2017 19:51
[2017-03-25] MEDS: BISACODYL EC 5 MG TABEC PO SCH (20:32)
[2017-03-26] VITALS: BP 122/65; PULSE 99; RESP 18; TEMP 98.5; O2SAT 99
--- NOTE | 2017-03-26 06:46 | PD.ORT.PN ---
Subjective Subjective Remarks POD 2 s/p IMN right hip doing well. pain controlled. out of bed with therapy Objective Vitals Vital Signs Date Time Temp Pulse Resp B/P (MAP) Pulse Ox O2 Delivery O2 Flow Rate FiO2 03/26/17 00:00 98.5 99 18 122/65 (84) 99 03/25/17 19:24 97.1 83 16 133/62 (85) 94 03/25/17 16:31 96.6 101 16 83/53 (63) 97 03/25/17 11:30 98.0 90 18 121/69 (86) 95 03/25/17 08:00 98.1 93 16 119/69 (86) 96 I/O 03/25/17 03/25/17 03/25/17 03/26/17 03/26/17 03/26/17 07:00 15:00 23:00 07:00 15:00 23:00 Intake Total 580 ml 620 ml 1000 ml Balance 580 ml 620 ml 1000 ml Intake Oral 480 ml 520 ml IV Total 100 ml 100 ml 1000 ml # Voids 3 2 # Bowel Movements 0 0 Result Diagram: 03/25/17 0538 03/24/17 0550 Imaging Last 24 hours Impressions Chest X-Ray 03/23/172053 Signed Impressions: Service Date/Time: Thursday, March 23, 2017 21:04 - CONCLUSION: No acute disease. Wyatt Barber MD Objective Remarks Right lower extremity: Clean dry dressings intact. Mild swelling. Distally intact sensation good capillary refills. Active dorsal flexion plantar flexion of foot Assessment & Plan Assessment and Plan 1) Right intertrochanteric femur fracture IM nail POD 2 Physical therapy weightbearing as tolerated Daily dressing changes POD 2 Lovenox Incentive spirometry Case management for rehabilitation placement ortho cleared for DC to rehab Follow-up Dr. Harman or PA in 2 weeks Colton Esquivel Mar 26, 2017 06:45
[2017-03-26 08:00] VITALS: BP 128/67; PULSE 105; RESP 18; TEMP 97.5; O2SAT 97
[2017-03-26 08:30] LABS: HEMATOCRIT 26.2 % (35.0-46.0); REVIEW FLAG FINAL
[2017-03-26 08:35] VITALS: O2SAT 94
[2017-03-26] MEDS: SODIUM CHLORIDE 0.9% FLUSH 10 ML FLUSH IV FLUSH SCH ×2 (08:46→22:31)
[2017-03-26] MEDS: MAGNESIUM HYDROXIDE SUSP 30 ML CUP PO PRN (08:47)
[2017-03-26] MEDS: LACTULOSE SYRUP 20 GM/30 ML CUP PO PRN (08:47)
[2017-03-26] MEDS: CALCIUM/VITAMIN D 250 MG/125 U TAB PO SCH ×3 (08:48→17:42)
[2017-03-26] MEDS: CHOLECALCIFEROL (VIT D3) 5000 UNIT CAP PO SCH (08:48)
[2017-03-26] MEDS: LISINOPRIL 20 MG TAB PO SCH (08:48)
[2017-03-26] MEDS: DOCUSATE SODIUM 50 MG/SENNA 8.6 MG TAB PO SCH ×2 (08:48→22:31)
[2017-03-26] MEDS: ENOXAPARIN SODIUM 30 MG/0.3 ML SYRINGE SQ SCH (08:48)
[2017-03-26 12:00] VITALS: BP 140/74; PULSE 106; RESP 18; TEMP 97.6; O2SAT 98
[2017-03-26] MEDS: ACETAMINOPHEN/HYDROcodone 325 MG/7.5 MG TAB PO PRN (13:43)
[2017-03-26] MEDS: SODIUM CHLOR 0.9% 1000 ML INJ 1,000 ML IV SCH ×2 (14:37→23:43)
[2017-03-26 16:00] VITALS: BP 104/59; PULSE 114; RESP 18; TEMP 96.9; O2SAT 98
--- NOTE | 2017-03-26 18:11 | HHI.PR ---
Subjective Remarks Doing well no acute issue pain is tolerable Afebrile overnight We'll repeat onset of CK if normal to be discharged to rehabilitation today, Lasix to be resumed in rehabilitation once CK back to normal Objective Vitals Vital Signs Date Time Temp Pulse Resp B/P (MAP) Pulse Ox O2 Delivery O2 Flow Rate FiO2 03/26/17 16:00 96.9 114 18 104/59 (74) 98 03/26/17 12:00 97.6 106 18 140/74 (96) 98 03/26/17 08:35 94 21 03/26/17 08:00 97.5 105 18 128/67 (87) 97 03/26/17 00:00 98.5 99 18 122/65 (84) 99 03/25/17 19:24 97.1 83 16 133/62 (85) 94 I/O 03/25/17 03/25/17 03/25/17 03/26/17 03/26/17 03/26/17 07:00 15:00 23:00 07:00 15:00 23:00 Intake Total 580 ml 620 ml 1000 ml 600 ml Balance 580 ml 620 ml 1000 ml 600 ml Intake Oral 480 ml 520 ml 600 ml IV Total 100 ml 100 ml 1000 ml # Voids 3 2 1 3 # Bowel Movements 0 0 1 1 Result Diagram: 03/26/17 0723 03/24/17 0550 Objective Remarks GENERAL: This is a well-nourished, well-developed patient, in no apparent distress. SKIN: No rashes, warm and dry HEAD: Atraumatic. Normocephalic. EYES: Pupils equal round and reactive. Extraocular motions intact. No scleral icterus. ENT: Nose without bleeding, or drainage, Airway patent. NECK: Trachea midline. Supple CARDIOVASCULAR: Regular rate and rhythm without murmurs, gallops, or rubs. RESPIRATORY: Fair air entry bilaterally. No wheezes, rales, or rhonchi. GASTROINTESTINAL: Abdomen soft, non-tender, nondistended. Positive bowel sounds MUSCULOSKELETAL: Extremities without clubbing, cyanosis, or edema. Pedal pulses appreciated NEUROLOGICAL: Awake and alert. Moves all extremity. Normal speech.no focal neurological deficit A/P Assessment and Plan Intertrochanteric fracture of the right hip Rhabdomyolysis elevated CK Hypertension Metabolic malnutrition DVT prophylaxis Plan: Status post ORIF Pain management with [place] Appreciate ortho helping Continue iv fluid and monitor CK with BMP Continue lisinopril and monitor blood pressure Monitor electrolyte 2-D echo reviewed trace to mild aortic regurg with EF 50-55% Lovenox for DVT prophylaxis 03/26: Repeat CK, Lasix to be resumed in rehabilitation once CK back to normal, patient can be discharged today or tomorrow when rehabilitation placement arrangement is done Vera Balderas MD Mar 26, 2017 18:11
[2017-03-26 19:12] LABS: BICARBONATE 25.2 MEQ/L (21.0-32.0); POTASSIUM 3.7 MEQ/L (3.5-5.1)
[2017-03-26 19:31] LABS: CKMB 1.5 NG/ML (0.5-3.6)
[2017-03-26 20:00] VITALS: BP 141/71; PULSE 99; RESP 17; TEMP 98.6; O2SAT 98
[2017-03-26] MEDS: BISACODYL EC 5 MG TABEC PO SCH (22:31)
[2017-03-27] VITALS: BP 109/68; PULSE 97; RESP 16; TEMP 98.2; O2SAT 98
[2017-03-27 08:00] VITALS: BP 139/72; PULSE 96; RESP 18; TEMP 97.1; O2SAT 100
[2017-03-27] MEDS: SODIUM CHLOR 0.9% 1000 ML INJ 1,000 ML IV SCH (08:49)
[2017-03-27] MEDS: SODIUM CHLORIDE 0.9% FLUSH 10 ML FLUSH IV FLUSH SCH (09:00)
[2017-03-27] MEDS: DOCUSATE SODIUM 50 MG/SENNA 8.6 MG TAB PO SCH (10:05)
[2017-03-27] MEDS: ENOXAPARIN SODIUM 30 MG/0.3 ML SYRINGE SQ SCH (10:05)
[2017-03-27] MEDS: CHOLECALCIFEROL (VIT D3) 5000 UNIT CAP PO SCH (10:05)
[2017-03-27] MEDS: ACETAMINOPHEN/HYDROcodone 325 MG/7.5 MG TAB PO PRN (10:05)
[2017-03-27] MEDS: LISINOPRIL 20 MG TAB PO SCH (10:06)
[2017-03-27] MEDS: CALCIUM/VITAMIN D 250 MG/125 U TAB PO SCH (10:06)
[2017-03-27 12:00] VITALS: BP 112/69; PULSE 112; RESP 18; TEMP 96; O2SAT 100
--- NOTE | 2017-03-27 17:08 | HHI.PR ---
Subjective Remarks Seen earlier today prior to discharge, discussed with her daughter, she looks stable to go to rehabilitation Objective Vitals Vital Signs Date Time Temp Pulse Resp B/P (MAP) Pulse Ox O2 Delivery O2 Flow Rate FiO2 03/27/17 12:00 96.0 112 18 112/69 (83) 100 03/27/17 08:00 97.1 96 18 139/72 (94) 100 03/27/17 07:35 Room Air 03/27/17 00:00 98.2 97 16 109/68 (82) 98 03/26/17 20:00 98.6 99 17 141/71 (94) 98 I/O 03/26/17 03/26/17 03/26/17 03/27/17 03/27/17 03/27/17 07:00 15:00 23:00 07:00 15:00 23:00 Intake Total 1000 ml 600 ml 600 ml 240 ml Balance 1000 ml 600 ml 600 ml 240 ml Intake Oral 600 ml 600 ml 240 ml IV Total 1000 ml # Voids 1 3 2 1 # Bowel Movements 1 1 Result Diagram: 03/26/17 0723 03/26/17 1833 Objective Remarks GENERAL: This is a well-nourished, well-developed patient, in no apparent distress. SKIN: No rashes, warm and dry HEAD: Atraumatic. Normocephalic. EYES: Pupils equal round and reactive. Extraocular motions intact. No scleral icterus. ENT: Nose without bleeding, or drainage, Airway patent. NECK: Trachea midline. Supple CARDIOVASCULAR: Regular rate and rhythm without murmurs, gallops, or rubs. RESPIRATORY: Fair air entry bilaterally. No wheezes, rales, or rhonchi. GASTROINTESTINAL: Abdomen soft, non-tender, nondistended. Positive bowel sounds MUSCULOSKELETAL: Extremities without clubbing, cyanosis, or edema. Pedal pulses appreciated NEUROLOGICAL: Awake and alert. Moves all extremity. Normal speech.no focal neurological deficit A/P Assessment and Plan Intertrochanteric fracture of the right hip Rhabdomyolysis elevated CK Hypertension Metabolic malnutrition DVT prophylaxis Plan: Status post ORIF Pain management with [place] Appreciate ortho helping Continue iv fluid and monitor CK with BMP Continue lisinopril and monitor blood pressure Monitor electrolyte 2-D echo reviewed trace to mild aortic regurg with EF 50-55% Lovenox for DVT prophylaxis 03/26: Repeat CK, Lasix to be resumed in rehabilitation once CK back to normal, patient can be discharged today or tomorrow when rehabilitation placement arrangement is done 03/27, transfer to rehabilitation today, CK down to 491, resume Lasix once CK within normal limits, check level CK at the rehabilitation Vera Balderas MD Mar 27, 2017 17:08
== END 2017-03-27 12:26 | DRG 481 ==
LOC: NEPC 20:13 → UNDOADMIN 22:27 → NEDA 22:27 → INTOOBSV 23:05 → NEDA 23:05 → N06A 03-24 00:30 → OBSVTOIN 03-24 10:32
PROVIDERS: ADMIT Hospitalist; ATTEND Hospitalist
PROC: 0QS606Z Reposition Right Upper Femur with Intramedullary Internal Fixation Device, Open Approach (ICD-10-PCS; principal; 2017-03-24 07:40)
DX: S72.141A Displaced intertrochanteric fracture of right femur, initial encounter for closed fracture (principal); M62.82 Rhabdomyolysis; I10 Essential (primary) hypertension; W01.0XXA Fall on same level from slipping, tripping and stumbling without subsequent striking against object, initial encounter; R01.1 Cardiac murmur, unspecified; G89.29 Other chronic pain; Y92.017 Garden or yard in single-family (private) house as the place of occurrence of the external cause; Z79.82 Long term (current) use of aspirin
CPT/HCPCS: 70450; 71010; 73502; 76000; 80048; 82306; 82550; 82552; 82948; 83735; 85014; 85018; 85025; 85610; 85730; 93005; 93306; 96374; J0690; J1580; J1650; J2270; J3370; J7030; J7040; J7050